=== PATIENT | female | born 1995 ===

== ENCOUNTER 2018-09-03 08:15 | Inpatient (IN) | payer OTHER ==
[~2018-09-03] VITALS: Ht 157.5 cm; Wt 71.2 kg
[2018-09-16] MEDS ORDERED: PRENATAL 19 TA1 EACH PO (08:13)
== END 2018-09-19 13:58 | DRG 768 ==
LOC: OB/GYN 09-16 20:13 → O/R 09-16 20:13 → LDR 09-16 20:13 → O/R 09-17 11:08 → OB/GYN 09-17 13:37 → LDR 09-21 08:15
PROVIDERS: Obstetrics & Gynecology
PROC: 4A1HXCZ Monitoring of Products of Conception, Cardiac Rate, External Approach (ICD-10-PCS; 2018-09-16)
PROC: 0DQR0ZZ Repair Anal Sphincter, Open Approach (ICD-10-PCS; 2018-09-17)
PROC: 3E033VJ Introduction of Other Hormone into Peripheral Vein, Percutaneous Approach (ICD-10-PCS; 2018-09-17)
PROC: 4A033R1 Measurement of Arterial Saturation, Peripheral, Percutaneous Approach (ICD-10-PCS; 2018-09-17)
PROC: 10E0XZZ Delivery of Products of Conception, External Approach (ICD-10-PCS; principal; 2018-09-17 11:30)
DX: O70.20 Third degree perineal laceration during delivery, unspecified (principal); Z37.0 Single live birth; Z3A.39 39 weeks gestation of pregnancy

== ENCOUNTER 2018-09-15 21:12 | Outpatient (CLI) | payer OTHER ==
[2018-09-16] MEDS ORDERED: PRENATAL 19 TA1 EACH PO (08:13)
== END 2018-09-16 09:29 | disposition home or self-care (01) ==
LOC: OBS/DEL 21:12
DX: O76 Abnormality in fetal heart rate and rhythm complicating labor and delivery (principal); Z34.83 Encounter for supervision of other normal pregnancy, third trimester

== ENCOUNTER 2022-03-03 14:08 | Emergency (ER) | payer OTHER ==
[~2022-03-03] VITALS: Ht 157.5 cm; Wt 64.4 kg
[~2022-03-03 14:08] MED LIST: PRENATAL 19 TA1 EACH PO
[2022-03-03] MEDS ORDERED: MACRODANTIN100 M1 PO (18:41)
== END 2022-03-03 19:12 | disposition home or self-care (01) ==
LOC: ER 14:08
DX: O23.41 Unspecified infection of urinary tract in pregnancy, first trimester (principal); N39.0 Urinary tract infection, site not specified

== ENCOUNTER 2022-06-25 13:20 | Outpatient (CLI) | payer OTHER ==
[~2022-06-25 13:20] MED LIST changes: +MACRODANTIN100 M1 PO
== END 2022-06-25 14:58 | disposition home or self-care (01) ==
LOC: PRENATAL 13:20
PROVIDERS: ATTEND Obstetrics & Gynecology Maternal & Fetal Medicine
DX: O35.0XX0 Maternal care for (suspected) central nervous system malformation in fetus, not applicable or unspecified (principal); O35.3XX0 Maternal care for (suspected) damage to fetus from viral disease in mother, not applicable or unspecified; Z3A.21 21 weeks gestation of pregnancy

== ENCOUNTER 2022-07-30 18:47 | Outpatient (CLI) | payer OTHER ==
[2022-07-30] MEDS ORDERED: PRENATAL TABLE1 EAC3 PO (19:33)
== END 2022-07-31 09:45 | disposition home or self-care (01) ==
LOC: OBS/DEL 18:47
PROVIDERS: ATTEND Obstetrics & Gynecology
DX: O9A.212 Injury, poisoning and certain other consequences of external causes complicating pregnancy, second trimester (principal); Z3A.26 26 weeks gestation of pregnancy; W19.XXXA Unspecified fall, initial encounter; Y93.9 Activity, unspecified; Y92.9 Unspecified place or not applicable; Y99.9 Unspecified external cause status

== ENCOUNTER 2022-10-24 03:20 | Inpatient (IN) | payer OTHER ==
[~2022-10-24] VITALS: Ht 157.5 cm; Wt 78.0 kg
[~2022-10-24 03:20] MED LIST changes: +PRENATAL TABLE1 EAC3 PO
[2022-10-24] MEDS ORDERED: VALTREX1000 MG (03:47)
== END 2022-10-26 10:36 | disposition home or self-care (01) | DRG 798 ==
LOC: LDR 03:20 → O/R 14:49 → OB/GYN 15:35
PROVIDERS: ADMIT Obstetrics & Gynecology; ATTEND Obstetrics & Gynecology
PROC: 0UB70ZZ Excision of Bilateral Fallopian Tubes, Open Approach (ICD-10-PCS; 2022-10-24)
PROC: 0KQM0ZZ Repair Perineum Muscle, Open Approach (ICD-10-PCS; 2022-10-24)
PROC: 4A1HXCZ Monitoring of Products of Conception, Cardiac Rate, External Approach (ICD-10-PCS; 2022-10-24)
PROC: 10E0XZZ Delivery of Products of Conception, External Approach (ICD-10-PCS; principal; 2022-10-24 14:30)
DX: O70.1 Second degree perineal laceration during delivery (principal); Z37.0 Single live birth; Z30.2 Encounter for sterilization; Z3A.38 38 weeks gestation of pregnancy; Z20.822 Contact with and (suspected) exposure to COVID-19